=== PATIENT | female | born 1980 | race Caucasian/White ===

== ENCOUNTER 2020-10-16 15:22 | Outpatient (CLI) | payer OTHER ==
--- NOTE | 2020-10-16 16:30 | MRI ---
MR the lumbar spine without contrast: 10/16/2020 History: Lumbar radiculopathy, right-sided back pain, right lower extremity radiculopathy COMPARISON: None available TECHNIQUE: Multiplanar multisequence MR images were obtained of lumbar spine without IV contrast FINDINGS: Incidental note is made of a small caliber incompletely imaged syrinx within the lower thor acic cord. On the basis of 5 lumbar type vertebral bodies, conus medullaris terminates at [id number] level. Sagittal STIR imaging demonstrates no focal area of osseous marrow edema. T12-L1:Mild bilateral facet hypertrophy with no significant central canal or neural foraminal stenosi s L1-2:Mild bilateral facet hypertrophy with no significant central canal or neural foraminal stenosis L2-3:Mild bilateral facet hypertrophy with no significant central canal or neural foraminal stenosis L3-4:Mild bilateral facet hypertrophy with no significant central canal or neural foraminal stenosis L4-5:Prominent bilateral facet hypertrophy. Probable mild central canal stenosis and mild bilateral n eural foraminal stenosis L5-S1:Bilateral facet hypertrophy, right greater than left. No significant central canal or neural fo raminal stenosis Image retroperitoneal structures demonstrateno acute findings. IMPRESSION: Lumbar spine degenerative change as detailed above, most prominent at L4-5. Incompletely imaged syrinx involving the lower thoracic cord. Recommend dedicated MRI of the cervical and thoracic spine for full assessment.
== END 2020-10-16 15:23 | disposition home or self-care (01) ==
LOC: BICMRI 15:22
PROVIDERS: ATTEND Student in an Organized Health Care Education/Training Program
DX: M47.26 Other spondylosis with radiculopathy, lumbar region (principal)
CPT/HCPCS: 72148

== ENCOUNTER 2021-02-28 09:31 | Outpatient (CLI) | payer OTHER ==
[2021-02-28 10:50] LABS: Estimated GFR-MDRD - POC Greater than 90
[2021-02-28] MEDS ORDERED: Magnevist 469MG/ML 20 ML VIAL ONE ×2 (15:04→15:05)
== END 2021-02-28 09:32 | disposition home or self-care (01) ==
LOC: BICMRI 09:31
PROVIDERS: ATTEND Nurse Practitioner Family
DX: M54.12 Radiculopathy, cervical region (principal); M54.14 Radiculopathy, thoracic region; M47.814 Spondylosis without myelopathy or radiculopathy, thoracic region; G95.0 Syringomyelia and syringobulbia
CPT/HCPCS: 72156; 72157; 82565; A9579

== ENCOUNTER 2021-03-22 19:21 | Observation (INO) | payer OTHER ==
[~2021-03-22 19:21] MED LIST: Iopamidol 370 76% 100 ML VIAL ONE
[2021-03-22 20:25] LABS: INR-International Normal Ratio 0.9; PTT 25.2 sec (22.9-36.1); Prothrombin Time 12.5 sec (12.0-14.7)
[2021-03-22 20:33] LABS: Hemoglobin 11.4 g/dL (12.0-16.0); Mean Corpuscular HGB CONC 30.7 g/dL (32.0-36.0); Mean Corpuscular Hemoglobin 23.8 pg (27.0-31.0); Mean Corpuscular Volume 77.3 fL (78.0-98.0); Mean Platelet Volume 9.3 fL (7.4-10.4); Platelet Count 253 thou/uL (130-400); RBC Distribution Width 15.9 % (11.5-14.5); Red Blood Cell (RBC) Count 4.78 mill/uL (4.20-5.40); White Blood Cell (WBC) Count 10.7 thou/uL (4.8-10.8)
[2021-03-22 20:36] LABS: Anion Gap 17 mmol/L (10-20); BUN (Urea Nitrogen) 17 mg/dL (7.0-18.7); Calc. Creatinine Clearance 0 mL/min (70-130); Carbon Dioxide 22 mmol/L (22-29); Chloride 102 mmol/L (98-107); Sodium 137 mmol/L (136-145)
[2021-03-22 20:37] LABS: ALT (SGPT) 36 U/L (8-55); AST (SGOT) 18 U/L (5-34); Albumin 3.8 g/dL (3.5-5.0); Alkaline Phosphatase 89 U/L (40-110); Bilirubin, Total 0.2 mg/dL (0.2-1.2); CK (CPK) 44 U/L (29-168); Calcium 9.2 mg/dL (7.8-10.44); Globulin 3.5 g/dL (2.4-3.5); Glucose 90 mg/dL (70-105); Protein, Total 7.3 g/dL (6.0-8.3)
[2021-03-22 20:38] LABS: Band 1 % (5-11); Eosinophils 4 % (0-10); Lymphocytes 29 % (21-51); MDiff Complete? YES; Monocytes 1 % (0-10); Neutrophil 65 % (42-75); Platelet Clumps SLIGHT; Platelet Morphology Comment Appears Adequate
[2021-03-22] MEDS ORDERED: Atorvastatin Calcium 40 MG TAB PO SCH (21:00)
[2021-03-22 21:22] LABS: BHCG - Serum Negative (NEGATIVE); Pregs Control Background? CLEAR/WHITE (CLR/WHITE); Pregs Control Bar Appear? YES (CONTROL BAR)
[2021-03-22] MEDS ORDERED: Ondansetron ODT 4 MG TAB PO PRN (22:03)
[2021-03-22] MEDS ORDERED: Acetaminophen 325 MG TAB PO PRN (22:03)
[2021-03-22] MEDS ORDERED: Aspirin 81 mg Enteric Coated Tablet PO SCH (22:15)
[2021-03-22] MEDS ORDERED: Enoxaparin Sodium 40 MG/0.4 ML SYRINGE SC SCH (22:15)
[2021-03-22] MEDS ORDERED: Aspirin Chewable 81 MG TAB ONE (22:20)
[2021-03-22 22:30] LABS: Hemoglobin A1c 5.6 % (4.0-6.0)
[2021-03-22] MEDS ORDERED: Labetalol HCl 100 MG/20 ML VIAL SLOW IVP PRN (22:36)
[2021-03-22 22:59] LABS: Ferritin 3.33 ng/mL (10-291); Thyroid Stimulating Hormone 0.6439 uIU/mL (0.35-4.94)
[2021-03-22 23:01] LABS: Iron 25 ug/dL (50-170); Iron Binding Capacity, Total 473 mcg/dL (265-497)
[2021-03-22 23:36] LABS: SARS-CoV-2 NAA Rapid Test Not Detected (NotDetected)
[2021-03-23 01:31] VITALS: BMI 51.2
[2021-03-23] MEDS ORDERED: Furosemide 80 MG TAB PO PRN (05:06)
[2021-03-23] MEDS ORDERED: diphenhydrAMINE 25 MG CAP PO PRN (05:12)
[2021-03-23] MEDS ORDERED: Ibuprofen 200 MG TAB PO PRN (05:12)
[2021-03-23] MEDS ORDERED: Fluticasone Propionate Nasal Spray 16 gm Bottle NASAL PRN (05:13)
[2021-03-23 05:47] LABS: Anion Gap 14 mmol/L (10-20); BUN (Urea Nitrogen) 17 mg/dL (7.0-18.7); Calc. Creatinine Clearance 211 mL/min (70-130); Calcium 9.1 mg/dL (7.8-10.44); Carbon Dioxide 25 mmol/L (22-29); Cardiac Risk 4.1 (Less than 4.5); Chloride 100 mmol/L (98-107); Cholesterol 178 mg/dl (< 200 Desired); Glucose 100 mg/dL (70-105); HDL Cholesterol 43 mg/dL (>60 Neg Risk); LDL Cholesterol, Calculated 109 mg/dL; Potassium 3.6 mmol/L (3.5-5.1); Sodium 135 mmol/L (136-145); Triglycerides 128 mg/dL (Less than 150)
[2021-03-23 06:48] LABS: #Basophils 0.1 thou/uL (0.0-0.2); #Eosinphils 0.3 thou/uL (0.0-0.7); #Lymphocytes 2.9 thou/uL (1.20-3.40); #Monocytes 0.4 thou/uL (0.11-0.59); #Neutrophils 6.1 thou/uL (1.40-6.50); %Basophils 1.1 % (0.0-1.0); %Eosinophils 3.5 % (0.0-10.0); %Lymphocytes 29.3 % (21.0-51.0); %Monocytes 4.4 % (0.0-10.0); %Neutrophils 61.8 % (42.0-75.0); Mean Corpuscular HGB CONC 31.6 g/dL (32.0-36.0); Mean Corpuscular Hemoglobin 24.6 pg (27.0-31.0); Mean Corpuscular Volume 77.9 fL (78.0-98.0); Mean Platelet Volume 8.6 fL (7.4-10.4); Platelet Count 331 thou/uL (130-400); Red Blood Cell (RBC) Count 4.48 mill/uL (4.20-5.40); White Blood Cell (WBC) Count 9.8 thou/uL (4.8-10.8)
[2021-03-23] MEDS: Gabapentin 300 MG CAP PO SCH ×2 (07:44→12:53)
[2021-03-23] MEDS ORDERED: metFORMIN 500 MG TAB PO SCH (08:00)
[2021-03-23] MEDS ORDERED: Aspirin 81 mg Enteric Coated Tablet PO SCH (09:00)
[2021-03-23] MEDS ORDERED: Lisinopril/Hydrochlorothiazide 20 mg/12.5 mg Tablet PO SCH (09:00)
[2021-03-23] MEDS ORDERED: Enoxaparin Sodium 40 MG/0.4 ML SYRINGE SC SCH (09:00)
[2021-03-23] MEDS ORDERED: Citalopram 20 MG TAB PO SCH (09:00)
[2021-03-23] MEDS ORDERED: BIRTH CONTROL PILL PO SCH (09:00)
[2021-03-23 12:02] VITALS: BP 137/94; TEMP 98.9
[2021-03-23] MEDS ORDERED: Amitriptyline HCl 10 MG TAB PO SCH (21:00)
== END 2021-03-23 14:56 | disposition home or self-care (01) ==
LOC: ERS 19:21 → 2SE 21:20
PROVIDERS: ADMIT Family Medicine; ATTEND Family Medicine
DX: G45.9 Transient cerebral ischemic attack, unspecified (principal); I10 Essential (primary) hypertension; R73.03 Prediabetes; E66.9 Obesity, unspecified; G62.9 Polyneuropathy, unspecified; G89.29 Other chronic pain; M54.9 Dorsalgia, unspecified; S03.00XA Dislocation of jaw, unspecified side, initial encounter; D50.9 Iron deficiency anemia, unspecified; F17.290 Nicotine dependence, other tobacco product, uncomplicated; Z68.43 Body mass index [BMI] 50.0-59.9, adult; Z79.84 Long term (current) use of oral hypoglycemic drugs; Z79.899 Other long term (current) drug therapy; Z88.1 Allergy status to other antibiotic agents; Z20.822 Contact with and (suspected) exposure to COVID-19
CPT/HCPCS: 0240U; 36415; 36416; 70496; 70498; 70551; 80048; 80053; 80061; 82550; 82728; 83036; 83540; 83550; 84443; 84484; 84703; 85025; 85610; 85730; 93005; 96372; G0378; J1650; Q9967